=== PATIENT | male | born 1960 | race Two or more races ===

== ENCOUNTER 2018-08-17 12:40 | Emergency (ER) | payer OTHER ==
[2018-08-17] MEDS ORDERED: Bupivacaine 0.5% 10 ML SDV INJECT ONE (13:09)
--- NOTE | 2018-08-17 13:17 | EDM.PDOC ---
ED HPI GENERAL MEDICAL PROBLEM - General Chief Complaint: Upper Extremity Injury/Pain Stated Complaint: RT HAND MIDDLE FINGER INJURY Time Seen by Provider: 08/17/18 12:43 Source of Information: Reports: Patient, RN Notes Reviewed History Limitations: Reports: Language Barrier - History of Present Illness INITIAL COMMENTS - FREE TEXT/NARRATIVE: Patient is a 57-year-old male who presents to the ED for the evaluation of a right middle finger injury. The patient is primarily Kazakh-speaking, however his boss is with him in the ED today to help provide history. 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 This does involve the DIP and fingertip avulsion type injury. This happened shortly before coming to the ER, the patient states that he thinks he is up-to-date on his tetanus booster. He notes that he takes a medication for blood pressure and diabetes, however does not remember the name of these medications at this time. - Related Data Allergies Allergy/AdvReac Type Severity Reaction Status Date / Time No Known Allergies Allergy Verified 08/17/18 13:12 Home Meds: Home Meds . [Unable to Verify Home Med List] 08/17/18 [History] Review of Systems - Review of Systems Review Of Systems: See Below Constitutional: Reports: No Symptoms Eyes: Reports: No Symptoms Ears: Reports: No Symptoms Nose: Reports: No Symptoms Mouth/Throat: Reports: No Symptoms Respiratory: Reports: No Symptoms Cardiovascular: Reports: No Symptoms GI/Abdominal: Reports: No Symptoms Genitourinary: Reports: No Symptoms Musculoskeletal: Reports: Hand Pain (right finger pain) Skin: Reports: Wound Neurological: Reports: No Symptoms Psychiatric: Reports: No Symptoms ED EXAM, GENERAL - Physical Exam Exam: See Below Exam Limited By: Language Barrier (Google translate is in place to help facilitate exam and history.) General Appearance: Alert, WD/WN, No Apparent Distress Eye Exam: Bilateral Eye: Normal Inspection Respiratory/Chest: No Respiratory Distress, Lungs Clear, Normal Breath Sounds, No Accessory Muscle Use, Chest Non-Tender Cardiovascular: Normal Peripheral Pulses, Regular Rate, Rhythm, No Murmur Peripheral Pulses: 3+: Radial (L), Radial (R) Neurological: Alert, Oriented, Normal Cognition, No Motor/Sensory Deficits Psychiatric: Normal Affect, Normal Mood Skin Exam: Wound/Incision (Fingertip avulsion type injury, this does involve the entire DIP of the right middle finger, you can see a bone fragment, this will be treated as an open fracture) Course - Orders/Labs/Meds Orders: Active Orders 24 hr Category Date Time Status Fingers Third Digit Rt F7 [CR] Stat Exams 08/17/18 12:59 Ordered Hand 2V Rt [CR] Stat Exams 08/17/18 12:59 Ordered Meds: Medications Discontinued Medications Generic Name Dose Route Start Last Admin Trade Name Rodo PRN Reason Stop Dose Admin Bupivacaine HCl 10 ml 08/17/18 13:09 Sensorcaine-Mpf 0.5% INJECT 08/17/18 13:10 ONETIME ONE - Re-Assessments/Exams Free Text/Narrative Re-Assessment/Exam: 08/17/18 13:15 Patient presents to the ED for evaluation of a right middle finger injury. The case was discussed with Dr. Alba, he did examine the patient and recommends a digital block and transferred to [place] for orthopedic hand surgery. I did order a finger x-ray for evaluation, and have ordered bupivacaine for a digital block. I will consult ortho in [place], The patient would prefer to be transferred by private vehicle if possible. 08/17/18 13:24 I did order 1 gm IV Ancef to be started, we will dress the wound with tube gauze after it has tentatively been pushed back into place, and will transfer the gentleman by private vehicle per his boss to [facility]. Dr. Sullivan is the orthopedic surgeon regional otr company driver. 08/17/18 13:49 The x-ray is done, and demonstrate a displaced fracture within the distal aspect of the distal phalanx of the right middle finger. It is an open fracture. Dr. Sullivan did call back and states that he will except the patient, they are to go to the [facility] ER. The patient should be nothing by mouth. Departure - Departure Time of Disposition: 13:38 Disposition: DC/Tfer to Acute Hospital 02 Condition: Fair Clinical Impression: Fracture of finger, middle phalanx, right, open Qualifiers: Encounter type: initial encounter Finger: middle finger Fracture alignment: displaced Qualified Code(s): S62.622B - Displaced fracture of middle phalanx of right middle finger, initial encounter for open fracture - Discharge Information *PRESCRIPTION DRUG MONITORING PROGRAM REVIEWED*: No *COPY OF PRESCRIPTION DRUG MONITORING REPORT IN PATIENT PACHECO: No Instructions: Finger Fracture, Adult, [id number] Referrals: PCP,None [Primary Care Provider] - Additional Instructions: Usted betancourt sido evaluado en el servicio de urgencias hoy por harris lesin en el dedo derecho. You have been evaluated in the ED today for your right middle finger injury. Harris dedo betancourt sido adormecido con el medicamento adormecedor para aliviar el dolor. Alexandra medicamento debe durar 6 horas. You have been given a medication that has numbed your finger, this should last 6 hours. Se le betancourt administrado un antibitico intravenoso para harris lesin. You have been given an IV antibiotic for your injury. Harris lesin en el dedo tendr que ser reparada en [place] por un cirujano ortopdico. Por favor, vaya directamente a yue instalaciones despus de salir de la margarita de emergencias hoy. Your injury will need to be repaired in [place] by an orthopedic surgeon. Please go directly to their facility after you leave the ER today. Tendr que ir a la margarita de emergencias de [facility], El Dr. Sullivan lo contreras hoy para un mayor manejo quirrgico de harris lesin. You will need to go to the [facility] ER, you will be seen by Dr. Sullivan for further surgical management of your injury today. La direccin de [facility] es [address] en [place]. The [facility] ER address is [address] in [place]. No se puede comer ni beber nada de inck a [place]. You cannot eat anything or drink anything on the way over to [place]. - My Orders Last 24 Hours: My Active Orders 08/17/18 12:59 Fingers Third Digit Rt F7 [CR] Stat Hand 2V Rt [CR] Stat - Assessment/Plan Last 24 Hours: My Active Orders 08/17/18 12:59 Fingers Third Digit Rt F7 [CR] Stat Hand 2V Rt [CR] Stat
[2018-08-17] MEDS ORDERED: ceFAZolin 1 GM in Premix Bag 1 BAG IV ONE (13:23)
[2018-08-17] MEDS ORDERED: Sodium Chloride 0.9% 10 ML Syringe FLUSH PRN (13:23)
--- NOTE | 2018-08-17 13:36 | CR ---
Right third finger: Four views centered to the right third finger were obtained. Displaced fracture is identified within the distal aspect of the distal phalanx. Fracture appears open. Soft tissue injury is seen. No proximal abnormality is seen other than degenerative joint space narrowing within the MCP joint. Impression: 1. Open fracture showing displacement as noted above. 2. Other incidental findings. Diagnostic code #3
== END 2018-08-17 14:17 ==
LOC: JD.ED 12:40
DX: S62.622B Displaced fracture of middle phalanx of right middle finger, initial encounter for open fracture (principal); W23.1XXA Caught, crushed, jammed, or pinched between stationary objects, initial encounter
CPT/HCPCS: 64450; 73140; 96365; 99284; J0690; J3490